=== PATIENT | female | born 1965 | race Caucasian/White ===

== ENCOUNTER 2022-07-02 10:23 | Outpatient (CLI) | payer OTHER | END 2022-07-02 10:24 | disposition home or self-care (01) | LOC: BICRAD 10:23 | PROVIDERS: ATTEND Student in an Organized Health Care Education/Training Program | DX: R05.3 Chronic cough (principal); R91.8 Other nonspecific abnormal finding of lung field | CPT/HCPCS: 71046 ==

== ENCOUNTER 2022-09-25 15:07 | Outpatient (CLI) | payer OTHER | END 2022-09-25 15:08 | disposition home or self-care (01) | LOC: ULT 15:07 | PROVIDERS: ATTEND Nurse Practitioner Family | DX: C53.9 Malignant neoplasm of cervix uteri, unspecified (principal); R22.32 Localized swelling, mass and lump, left upper limb; I82.C12 Acute embolism and thrombosis of left internal jugular vein; I82.B12 Acute embolism and thrombosis of left subclavian vein; I82.A12 Acute embolism and thrombosis of left axillary vein; I82.622 Acute embolism and thrombosis of deep veins of left upper extremity; I82.612 Acute embolism and thrombosis of superficial veins of left upper extremity ==

== ENCOUNTER 2022-10-01 17:29 | Outpatient (CLI) | payer OTHER ==
[~2022-10-01 17:29] MED LIST: Iopamidol-370 76% 500 ML 1 ML ONE
== END 2022-10-01 17:30 | disposition home or self-care (01) ==
LOC: CT 17:29
PROVIDERS: ATTEND Nurse Practitioner Family
DX: C53.9 Malignant neoplasm of cervix uteri, unspecified (principal); R91.8 Other nonspecific abnormal finding of lung field; R59.0 Localized enlarged lymph nodes
CPT/HCPCS: 71275; Q9967